=== PATIENT | male | born 1945 | race Caucasian/White ===

== ENCOUNTER 2023-08-18 13:10 | Outpatient (CLI) | payer MEDICARE, BC, SELFPAY ==
--- NOTE | 2023-08-18 13:19 | ECG_ITS ---
Measurements Intervals Couch Rate: 87 P: 101 [place]: 213 QRS: 13 QRSD: 117 T: 104 QT: 528 QTc: 636 Interpretive Statements SINUS RHYTHM WITH FIRST DEGREE AV BLOCK MODERATE INTRAVENTRICULAR CONDUCTION DELAY [110+ ms QRS DURATION] NONSPECIFIC ST & T-WAVE ABNORMALITY PROLONGED QT INTERVAL WARNING: DATA QUALITY MAY AFFECT INTERPRETATION NO PREVIOUS ECG AVAILABLE FOR COMPARISON Electronically Signed On 08-18-2023 15:50:01 DIRECTOR HOME by Bernice Vickers M.D.
[2023-08-18 15:12] LABS: Hematocrit 22.6 % (42.0-52.0); Immature Platelet Fraction Pct 14.3 % (0.9-11.2); Mean Corpuscular Hemoglobin 28.5 pg (26-34); Mean Corpuscular Volume 91.9 fl (80-100); Mean Platelet Volume 14.4 fl (7.4-10.4); Platelet Count Result 121 k/mm3 (150-375); Red Blood Count 2.46 M/mm3 (4.6-6.20); Red Cell Distribution Width 13.5 % (11.5-14.5); White Blood Count 7.2 K/mm3 (4.5-10.0)
[2023-08-18 15:20] LABS: Anion Gap 8 mmol/L (8-16); Blood Urea Nitrogen 57 mg/dL (9-20); Calcium 8.8 mg/dL (8.4-10.2); Carbon Dioxide 28 mmol/L (22-30); Chloride 106 mmol/L (98-107); Estimated Glomerular Filt Rate 22; Glucose 97 mg/dL (65-110); INR 1.7; Potassium 3.5 mmol/L (3.4-5.0); Prothrombin Time 21.1 Seconds (11.1-14.7); Sodium 142 mmol/L (137-145)
[2023-08-18 15:22] LABS: Partial Thromboplastin Time 37.2 SECONDS (22.3-36.8)
[2023-08-18 15:29] LABS: Appearance Urine Cloudy (Clear); Bacteria Urine 1+ /hpf; Bilirubin Urine Negative (Negative); Blood Urine 3+ (Negative); Color Urine Yellow (Yellow); Glucose Urine UA Negative (Negative); Ketones Urine Negative (Negative); Leukocyte Esterase Ur 3+ LEU/UL (Negative); Need Manual Microscopic Reviewed; Nitrate Urine Negative (Negative); Non Pathogenic Casts >20; Protein Urine Negative (Negative); RBC Urine >100 /hpf (0-2); Specific Grav Ur 1.011 (1.001-1.035); Squamous Epithelial Cell Urine None seen /hpf (Few); Urobilinogen Urine 0.2 mg/dL (<2.0); WBC Urine >100 /hpf; pH Urine 5.5 (5.0-9.0)
[2023-08-18 15:33] LABS: Add Urine Microscopic? YES
== END 2023-08-18 13:11 | disposition home or self-care (01) ==
PROVIDERS: Visit Provider Neurological Surgery
DX: M48.062 Spinal stenosis, lumbar region with neurogenic claudication (principal); I10 Essential (primary) hypertension; Z01.818 Encounter for other preprocedural examination; I44.0 Atrioventricular block, first degree
CPT/HCPCS: 36415; 80048; 81001; 85027; 85055; 85610; 85730; 87086; 93005